=== PATIENT | male | born 1985 | race American Indian/Alaskan Native ===

== ENCOUNTER 2016-11-26 23:42 | Emergency (ER) | payer SELFPAY | END 2016-11-27 01:10 | disposition left against medical advice (07) | LOC: ED 23:42 | DX: N50.89 Other specified disorders of the male genital organs (principal); Z53.21 Procedure and treatment not carried out due to patient leaving prior to being seen by health care provider ==

== ENCOUNTER 2016-12-29 17:40 | Emergency (ER) | payer SELFPAY ==
[2016-12-29 18:17] VITALS: BP 158/106
--- NOTE | 2016-12-29 20:40 | Emergency Department Report ---
Upper Extremity - [facility] Chief Complaint: Extremity Injury, Upper Stated Complaint: PULLED MUSCLE BOTH UPPER ARMS Time Seen by Provider: 12/29/16 20:30 Upper Extremity: Left Arm, Right Arm Occurred When: 3 Days Mechanism: Other (overuse) Severity: severe ED Review of Systems ROS: Stated complaint: PULLED MUSCLE BOTH UPPER ARMS Other details as noted in HPI Constitutional: denies: chills, fever Eyes: denies: eye pain, eye discharge, vision change ENT: denies: ear pain, throat pain Respiratory: denies: cough, shortness of breath, wheezing Cardiovascular: denies: chest pain, palpitations Endocrine: no symptoms reported Gastrointestinal: denies: abdominal pain, nausea, diarrhea Genitourinary: denies: urgency, dysuria Musculoskeletal: myalgia. denies: back pain, joint swelling Skin: denies: rash, lesions Neurological: denies: headache, weakness, paresthesias Psychiatric: denies: anxiety, depression Hematological/Lymphatic: denies: easy bleeding, easy bruising ED Past Medical Hx - Past Medical History Previous Medical History?: Yes Hx Asthma: Yes - Surgical History Past Surgical History?: Yes Additional Surgical History: gastric bypass - Social History Smoking Status: Current Every Day Smoker Substance Use Type: Alcohol - Medications Home Medications: Home Medications Medication Instructions Recorded Confirmed Last Taken Type Tramadol HCl [traMADol ER 100 MG] 100 mg PO BID #20 tab 12/29/16 Unknown Rx Upper Extremity Exam - Exam General: Vital signs noted. No distress. Alert and acting appropriately. Head and Torso: Yes HEENT Abnormality, No Neck Tenderness, No Chest/Lungs Abnormality, No Back Tenderness Shoulder Exam: Yes Normal Range of Motion in Shoulder, No Shoulder Tenderness, No Clavicle Tenderness, No Shoulder Deformity, No AC Joint Tenderness Arm Exam: Yes Arm/Humerus Tenderness, No Arm Deformity Elbow: Yes Normal Range of Motion in Elbow, No Elbow Tenderness, No Elbow Deformity ED Course Vital Signs 12/29/16 18:13 Temperature 98.1 F Pulse Rate 57 L Respiratory 16 Rate Blood Pressure 158/106 O2 Sat by Pulse 100 Oximetry - Reevaluation(s) Reevaluation #1: 12/29/16 21:43 This is a pleasant 31-year-old gentleman who indicates that he was lifting weights heavily on Sunday. This is not a normal activity for him. He was mostly doing arm curls. He now has significant tenderness in the biceps bilaterally. Examination demonstrates muscle spasming and tenderness in the biceps bilaterally there is no evidence of tendon rupture or belly body he has since. I feel this is an overuse injury with strain. We will institute conservative measures for him and routine pain management stable otherwise. Critical care attestation.: If time is entered above; I have spent that time in minutes in the direct care of this critically ill patient, excluding procedure time. ED Disposition Clinical Impression: Muscle strain Disposition: DISCHARGED TO HOME OR SELFCARE Is pt being admited?: No Does the pt Need Aspirin: No Condition: Stable Instructions: Muscle Strain (ED) Additional Instructions: Do gentle stretching exercises at home. No strenuous activities x 5 days. Tylenol as needed for pains in addition to Tramadol. Consider icing arms a couple of times a day. Prescriptions: Tramadol HCl [traMADol ER 100 MG] 100 mg PO BID #20 tab Referrals: PRIMARY CARE, [Primary Care Provider] - 3-5 Days Time of Disposition: 20:39
== END 2016-12-29 20:45 | disposition home or self-care (01) ==
LOC: ED 17:40
DX: S43.402A Unspecified sprain of left shoulder joint, initial encounter (principal); S43.401A Unspecified sprain of right shoulder joint, initial encounter; J45.909 Unspecified asthma, uncomplicated; F17.200 Nicotine dependence, unspecified, uncomplicated; X58.XXXA Exposure to other specified factors, initial encounter; Y93.9 Activity, unspecified; Y92.9 Unspecified place or not applicable; Y99.9 Unspecified external cause status
CPT/HCPCS: 99281

== ENCOUNTER 2017-01-08 17:50 | Emergency (ER) | payer SELFPAY ==
[2017-01-08 18:07] VITALS: BP 160/93
== END 2017-01-08 23:06 | disposition left against medical advice (07) ==
LOC: ED 17:50
DX: R11.0 Nausea (principal); Z53.21 Procedure and treatment not carried out due to patient leaving prior to being seen by health care provider